=== PATIENT | female | born 1965 | race Caucasian/White ===

== ENCOUNTER 2024-10-16 11:55 | Emergency (ER) | payer MEDICAID ==
[2024-10-16] MEDS: Tetracaine HCl/PF 0.5% 4 ML Bottle EYERT STA (12:45)
== END 2024-10-16 13:56 | disposition home or self-care (01) ==
LOC: MW.ED 11:55
DX: S05.01XA Injury of conjunctiva and corneal abrasion without foreign body, right eye, initial encounter (principal); I10 Essential (primary) hypertension; E78.00 Pure hypercholesterolemia, unspecified; Z79.899 Other long term (current) drug therapy; Z79.890 Hormone replacement therapy; X58.XXXA Exposure to other specified factors, initial encounter; Y93.89 Activity, other specified
CPT/HCPCS: 99283; J3490